=== PATIENT | female | born 1970 | race Caucasian/White ===

== ENCOUNTER → 2018-01-03 | Outpatient (CLI) | payer BC | LOC: FIMAGING 09:57 | PROVIDERS: ATTEND Obstetrics & Gynecology | DX: N92.0 Excessive and frequent menstruation with regular cycle (principal); N88.8 Other specified noninflammatory disorders of cervix uteri; N94.89 Other specified conditions associated with female genital organs and menstrual cycle ==

== ENCOUNTER → 2018-10-13 | Outpatient (CLI) | payer BC | LOC: BMCIMAGING 12:58 ==

== ENCOUNTER → 2018-10-15 | Outpatient (CLI) | payer BC | LOC: FIMAGING 12:38 ==